=== PATIENT | male | born 1975 | race Two or more races ===

== ENCOUNTER 2020-03-02 00:33 | Emergency (ER) | payer SELFPAY ==
[~2020-03-02] VITALS: Ht 167.6 cm; Wt 86.2 kg
--- NOTE | 2020-03-02 01:35 | NUR ---
AT BEDSIDE FOR EVAL.
[2020-03-02] MEDS ORDERED: KETOROLAC TROMETHAMINE INJ 30 MG/ML VIAL ONE (01:53)
[2020-03-02] MEDS ORDERED: METOCLOPRAMIDE HCL 10 MG/2 ML VIAL ONE (01:54)
[2020-03-02] MEDS ORDERED: KETOROLAC TROMETHAMINE INJ 30 MG/ML VIAL IV ONE (02:00)
[2020-03-02] MEDS ORDERED: METOCLOPRAMIDE HCL 10 MG/2 ML VIAL IV ONE (02:00)
[2020-03-02 02:39] VITALS: BP 130/74
--- NOTE | 2020-03-02 03:02 | NUR ---
IV removed. Catheter intact and site benign. Pressure and 4x4 applied to site. No bleeding noted. Patient discharged to home in stable condition. Written and verbal after care instructions given. Patient verbalizes understanding of instruction.
== END 2020-03-02 03:02 | disposition home or self-care (01) ==
LOC: ER 00:33
DX: R51 Headache (principal)
CPT/HCPCS: 96374; 96375; 99284; A4216; J1885; J2765